=== PATIENT | male | born 1970 | race Caucasian/White ===

== ENCOUNTER 2017-04-01 09:08 | Outpatient (CLI) | payer BC ==
[2016-01-15 17:22] VITALS: BP 160/88
[2017-04-01 09:50] LABS: eGFR (African) > 60; eGFR (Non-African) > 60
== END 2017-04-01 09:10 ==
LOC: LAB 09:08
PROVIDERS: ATTEND Physician Assistant
DX: E11.9 Type 2 diabetes mellitus without complications (principal); I10 Essential (primary) hypertension; E78.2 Mixed hyperlipidemia
CPT/HCPCS: 36415; 80053; 80061; 83036

== ENCOUNTER 2018-02-09 02:43 | Emergency (ER) | payer BC, OTHER ==
[2018-02-09] MEDS: 0.9 % SODIUM CHLORIDE 1,000 ML IV ONE (03:29)
[2018-02-09 03:33] LABS: MEAN CORPUSCULAR VOLUME 90.6 fl (80.0-100.0)
[2018-02-09 03:34] LABS: BASOPHILS % 0.3 (0.0-1.5); EOSINOPHILS % 1.3 % (0.0-6.8); MONOCYTES % 4.1 % (0.0-11.0); NEUTROPHILS # 7.7 # k/uL (1.4-7.7)
[2018-02-09 03:47] LABS: eGFR (African) > 60; eGFR (Non-African) > 60
--- NOTE | 2018-02-09 03:55 | ED Physician Documentation ---
General Adult - HISTORIAN Historian: patient - HPI Stated Complaint: Not feeling well Chief Complaint: General Adult Onset: days ago (1) Timing: still present Severity: moderate Further Comments: yes (Pt os a 48 yo male with malaise and weakness. No specific complaint, no n/v/diarrhea, no cough, sore throat. Pt has DM and HTN. Pt's says he may be dehydrated, working in a hot environment.) - ROS CONST: other (malaise) EYES/ENT: none CVS/RESP: none GI/: none MS/SKIN/LYMPH: none - PAST HX Past History: hypertension, other (DMII, HLD) Surgeries/Procedures: other (tonsillectomy) Allergies/Adverse Reactions: Allergies Allergy/AdvReac Type Severity Reaction Status Date / Time No Known Drug Allergies Allergy Verified 02/09/18 03:02 - SOCIAL HX Smoking History: cigarettes - FAMILY HX Family History: No - VITAL SIGNS Vital Signs: Vital Signs Temp Pulse Resp BP Pulse Ox 98.6 F 110 H 16 143/113 96 02/09/18 02:45 02/09/18 02:45 02/09/18 02:45 02/09/18 02:45 02/09/18 02:45 - REVIEWED ASSESSMENTS Nursing Assessment Reviewed: Yes Vitals Reviewed: Yes Progress - Progress Progress: NS 1 L IVF improved ED Results Lab/Radiology - Lab Results Lab Results: Lab Results 02/09/18 02/09/18 03:28 03:28 WBC 10.97 K/ul K/ul (4.00-12.00) RBC 4.90 M/ul M/ul (3.90-5.20) Hgb 15.5 g/dL g/dL (12.0-18.0) Hct 44.3 % % (37.0-53.0) MCV 90.6 fl fl (80.0-100.0) MCH 31.6 pg pg (28.0-34.0) MCHC 35.0 g/dL g/dL (30.0-36.0) RDW 12.6 % % (11.3-14.3) Plt Count 358 K/mm3 K/mm3 (130-400) Neut % (Auto) 70.0 % % (39.0-79.0) Lymph % (Auto) 22.9 % % (16.0-50.0) [place] % (Auto) 4.1 % % (0.0-11.0) Eos % (Auto) 1.3 % % (0.0-6.8) Baso % (Auto) 0.3 (0.0-1.5) Neut # (Auto) 7.7 # k/uL # k/uL (1.4-7.7) Lymph # (Auto) 2.5 # k/uL # k/uL (0.6-4.0) [place] # (Auto) 0.5 # k/uL # k/uL (0.0-0.9) Eos # (Auto) 0.2 # k/uL # k/uL (0.0-0.6) Baso # (Auto) 0.0 # k/uL # k/uL (0.0-0.5) Reactive Lymphs % 1.4 % % (0.0-5.0) Reactive Lymphs # 0.2 # k/uL # k/uL (0.0-0.8) Sodium 134 mmol/L L mmol/L (136-145) Potassium 3.9 mmol/L mmol/L (3.5-5.1) Chloride 98 mmol/L mmol/L (98-107) Carbon Dioxide 28 mmol/L mmol/L (22-30) BUN 14 mg/dL mg/dL (9-20) Creatinine 0.80 mg/dL mg/dL (0.66-1.25) Estimated Creat Clear 168 Est GFR ( Amer) > 60 (60 - ) Est GFR (Non-Af Amer) > 60 (60 - ) Glucose 178 mg/dL H mg/dL (74-106) Calcium 9.3 mg/dL mg/dL (8.4-10.2) Total Bilirubin 0.1 mg/dL L mg/dL (0.2-1.3) AST 23 U/L U/L (15-46) ALT 28 U/L U/L (13-69) Alkaline Phosphatase 93 U/L U/L (38-126) Total Protein 7.8 g/dL g/dL (6.3-8.2) Albumin 4.3 g/dL g/dL (3.5-5.0) - Orders Orders: ED Orders Category Date Time Status CBC/PLATELET/DIFF Routine Lab 06/20/18 03:28 Completed CMP Routine Lab 02/09/18 03:28 Completed UA [URINALYSIS] Routine Lab 02/09/18 Ordered 0.9 % Sodium Chloride [Normal Saline] 1,000 ml Med 02/09/18 03:13 Active IV Q1H General Adult Physical Exam - PHYSICAL EXAM GENERAL APPEARANCE: mild distress EENT: pharynx normal NECK: normal inspection, supple RESPIRATORY: no resp distress, chest non-tender, breath sounds normal CVS: reg rate & rhythm, heart sounds normal ABDOMEN: soft, no organomegaly, normal bowel sounds BACK: normal inspection, no CVA tenderness SKIN: warm/dry EXTREMITIES: non-tender, normal range of motion, no evidence of injury, no edema NEURO: oriented X3, motor nml, sensation nml Discharge Clincal Impression: dehydration Referrals: Courtney Hill MD [Primary Care Provider] - Condition: Good Disposition: 01 HOME, SELF-CARE Decision to Admit: NO Decision Time: 03:58
[2018-02-09 04:18] VITALS: BP 146/99
[2018-02-09 07:08] LABS: APPEARANCE,URINE CLEAR (CLEAR); COLOR,URINE YELLOW (YELLOW)
[2018-02-09 07:09] LABS: OCCULT BLOOD,URINE NEGATIVE (NEGATIVE); PH URINE 5.5 (5.0 - 8.0)
[2018-02-12 09:35] LABS: MEAN CORPUSCULAR HEMOGLOBIN 31.7 pg (28.0-34.0)
== END 2018-02-09 04:05 | disposition home or self-care (01) ==
LOC: ED 02:43
DX: E86.0 Dehydration (principal)
CPT/HCPCS: 80053; 81002; 85025; J7030; 96360; 99284; S1016